=== PATIENT | male | born 1945 | race Caucasian/White ===

== ENCOUNTER 2017-08-20 09:33 | Outpatient (CLI) | payer MEDICARE, OTHER ==
[2017-08-20] MEDS ORDERED: ALBUTEROL SULFATE 2.5 MG/3 ML AMPUL.NEB NEB ONE (09:43)
== END 2017-08-20 09:35 ==
LOC: RT 09:33
PROVIDERS: ATTEND Family Medicine
DX: R06.02 Shortness of breath (principal)
CPT/HCPCS: 94060